=== PATIENT | female | born 1980 | race Caucasian/White ===

== ENCOUNTER → 2017-07-10 | Day surgery (SDC) | payer OTHER ==
[~2017-07-10] VITALS: Ht 165.1 cm; Wt 71.8 kg
[~2017-07-10] MED LIST: ACETAMINOPHEN 1000 MG/100 ML VIAL IV ONE; CHLORHEXIDINE GLUCONATE 2 % 1 PACK (2 CLOTHS) TOPICAL PRN; CITRIC ACID-SODIUM CITRATE LIQ 30 ML UDC PO ONE; DO NOT ADM ANY ANTICOAGULANT DRUGS PRN; FAMOTIDINE 20 MG/2 ML VIAL IV ONE; INSULIN HUMAN REGULAR 1,000 UNITS/10 ML VIAL SQ PRN; KETOROLAC TROMETHAMINE 60 MG/2 ML (IM) VIAL IM ONE; LACTATED RINGER'S 1000 ML INJ 1,000 ML IV ONE; LACTATED RINGER'S 1000 ML IV PRN; LORazepam 2 MG/ML VIAL IV ONE; LORazepam 2 MG/ML VIAL ONE; METOPROLOL TARTRATE 25 MG TAB PO PRN; MIDAZOLAM HCL 2 MG/2 ML VIAL IV ONE; ONDANSETRON HCL 4 MG/2 ML VIAL IV PUSH ONE; OXYTOCIN 10 UNIT/ML AMP ONE; POVIDONE IODINE 5% (ANTISEPSIS KIT) 4 APPLICATIONS EACH NARE PRN; PREN1TAB60 PO; PROPOFOL 200 MG/20 ML AMP IV ONE; SODIUM CHLORID 0.9% 500 ML INJ 500 ML IV ONE; SODIUM CHLORID 0.9% 500 ML IV PRN; TYLETAB34 PO; UNIS25TA3 PO; ZANT150T2 PO; ceFAZolin 1,000 MG/NS 100 ML IV SCH
[2017-07-10] MEDS: ACETAMINOPHEN 1000 MG/100 ML VIAL IV SCH ×2 (11:02→13:40)
[2017-07-10 11:28] LABS: AUTOMATED NEUTROPHIL # 2.9 TH/MM3 (1.8-7.7); BASOPHIL % 0.4 % (0.0-2.0); EOSINOPHIL # 0.1 TH/MM3 (0-0.4); HEMATOCRIT 33.4 % (35.0-46.0); LYMPH % 25.9 % (9.0-44.0); LYMPHOCYTE # 1.2 TH/MM3 (1.0-4.8); MEAN CELL VOLUME 86.7 FL (80.0-100.0); MEAN CORPUSCULAR HEMOGLOBIN 31.6 PG (27.0-34.0); MONO % 9.5 % (0.0-8.0); NEUT % 61.2 % (16.0-70.0); PLATELET COUNT 250 TH/MM3 (150-450); RED BLOOD COUNT 3.85 MIL/MM3 (4.00-5.30); RED CELL DISTRIBUTION WIDTH 13.7 % (11.6-17.2); WHITE BLOOD COUNT 4.8 TH/MM3 (4.0-11.0)
[2017-07-10 11:29] LABS: HEMO FLAGS AUTO DIFF; MEAN CORPUSCULAR HGB CONC 36.4 % (32.0-36.0)
[2017-07-10 11:35] LABS: BACTERIA, URINE OCC /hpf; BLOOD, URINE NEG (NEG); COMMENT (UR) CULTURE INDICATED; CULTURE IF INDICATED CULTURE INDICATED; GLUCOSE,URINE NEG (NEG); KETONE, URINE NEG (NEG); MUCUS URINE FEW /lpf (OCC); NITRITE,URINE NEG (NEG); SQUAMOUS EPITHELIAL CELL URINE 5 /hpf (0-5); URINE COLOR YELLOW (YELLW/STRAW)
--- NOTE | 2017-07-10 12:13 | MH ---
cc: SERJIO CASTRO DATE OF ADMISSION 07/10/2017 ADMISSION DIAGNOSIS Spontaneous at 7-8 days gestation. HISTORY OF PRESENT ILLNESS The patient is a 37-year-old white female para 5-0-2-5 with LMP of 05/09/2017, EDC of 01/27/2018. She had some cramping. No bleeding. Ultrasound done on 06/24/2017 showed a VIP of 6 weeks. Her corrected EDC of 02/17/18. She is developed light bleeding on the night of 07/06/17, went to the emergency department. Ultrasound showed a pole. Heart rate could not be seen and bleeding stopped. She was seen in the office on the 07/09/17. Ultrasound confirmed a nonviable at approximately 6 weeks. She is now admitted for D&C. PAST MEDICAL HISTORY 1. Previous surgery in 2015, 2. Laparoscopic cholecystectomy 1996 3. Appendectomy. 4. Oral surgery 2014. MEDICATIONS Vitamins. ALLERGIES PPD VACCINE POSSIBLE BACTRIM TRANSFUSIONS None. OBSTETRICAL HISTORY Five term deliveries, two spontaneous abortions. SOCIAL HISTORY She is . 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. . Alcohol, tobacco and drugs are none. FAMILY HISTORY Noncontributory. PHYSICAL EXAMINATION GENERAL: A well-nourished well-developed white female. VITAL SIGNS: Stable. HEENT: Exam is normal. CHEST: Clear HEART: Regular rate. BREASTS: Symmetrical. ABDOMEN: Benign. PELVIC: Normal external genitalia and BUS. Vagina is normal. Cervix normal. Uterus is about 7-8 weeks' size. Adnexa non-palpable. ASSESSMENT As above. PLAN She is now admitted for D&C suction. While in the office, I explained the procedures, the risks, benefits and complications and the patient would like to proceed. MD ALEKSEY Trujillo/ /9:16 PM /12:05 PM MTDD
[2017-07-10 12:18] LABS: OVALOCYTES 1+ (NORMAL); SCAN/DIFF AUTO DIFF CONFIRMED
--- NOTE | 2017-07-10 13:36 | MP ---
cc: SERJIO CASTRO DATE OF SURGERY 07/10/2017 PREOPERATIVE DIAGNOSIS Spontaneous at 7-8 weeks gestation. POSTOPERATIVE DIAGNOSIS Spontaneous at 7-8 weeks gestation. PROCEDURE Suction and sharp D&C. ANESTHESIA General ET SURGEON Serjio Castro MD [employer] [place] OR ESTIMATED BLOOD LOSS About 200 cc FLUIDS About 300 cc of crystalloid OBJECTIVE FINDINGS Following induction of adequate general endotracheal anesthesia, the patient was prepped and draped supine on the operating table in the dorsolithotomy position in the usual sterile fashion with the bladder being drained via in and out catheterization of about 30 cc. Exam under anesthesia revealed an 8-weeks' size retroverted uterus with no adnexal masses. A heavy weighted speculum was placed in the posterior fornix of the vagina. The anterior lip of the cervix grasped with a single toothed tenaculum. Cervix and uterus sounded to 9 cm with a soft dilator, then dilated with #19 Hanks dilator. A #8 suction curette passed to remove the POC material. A small sharp curette was used to dislodge adherent tissue. The suction catheter was passed again to sweet pickle maker lose tissue and debris. All instruments were removed. All counts were correct. Uterus was now retracted down to six weeks size. The patient's legs taken out of the stirrups. She was awakened and taken to the recovery room in good condition. MD ALEKSEY Trujillo/RACHEAL /12:57 PM /1:28 PM
[2017-07-10 15:15] VITALS: BP 133/83; PULSE 104; RESP 18; TEMP 98.1; O2SAT 100
== END | disposition home or self-care (01) ==
LOC: HSDC 10:16
PROVIDERS: ATTEND Obstetrics & Gynecology
DX: O02.1 Missed abortion (principal); Z3A.01 Less than 8 weeks gestation of pregnancy
CPT/HCPCS: 01965; 59820; 81001; 85025; 86077; 86850; 86870; 86900; 86901; 86902; 86920; 86922; 87077; 87086; 87186; 88305; J0131; J0690; J1885; J2250; J2405; J2590; J3010; J7040; J7120; J2060